=== PATIENT | female | born 1965 | race Caucasian/White ===

== ENCOUNTER → 2016-03-13 | Outpatient (REF) | payer OTHER ==
[2016-03-13 18:31] LABS: MEAN CORPUSCULAR HEMOGLOBIN 30.1 pg (27.0-33.0); MEAN CORPUSCULAR HGB CONC 33.3 g/dl (32.0-36.5); MEAN CORPUSCULAR VOLUME 90.3 fl (80.0-96.0); RED CELL DISTRIBUTION WIDTH 12.8 % (11.5-14.5); WHITE BLOOD COUNT 5.4 K/mm3 (4.0-10.0)
[2016-03-13 21:20] LABS: EOSINOPHILS 1 % (0-5)
== END ==
LOC: M LAB REF 16:16
PROVIDERS: ATTEND Internal Medicine
DX: L50.1 Idiopathic urticaria (principal)

== ENCOUNTER → 2016-08-15 | Outpatient (REF) | payer OTHER | LOC: M LAB REF 16:50 | PROVIDERS: ATTEND Internal Medicine | DX: D64.9 Anemia, unspecified (principal); E03.9 Hypothyroidism, unspecified; Q82.2 Congenital cutaneous mastocytosis ==

== ENCOUNTER → 2016-11-16 | Outpatient (REF) | payer OTHER | LOC: M LAB REF 17:23 | PROVIDERS: ATTEND Internal Medicine | DX: E03.9 Hypothyroidism, unspecified (principal) ==

== ENCOUNTER → 2016-12-05 | Outpatient (CLI) | payer OTHER ==
[2016-12-09 00:08] LABS: %CD8-/CD57+LYMPHS 4.2 % (2.0-17.0); B. HENSELAE IgG (CAT SCRATCH) Negative titer (Neg:<1:320); B. HENSELAE IgM (CAT SCRATCH) Negative titer (Neg:<1:100); B. QUINTANA IgG (CAT SCRATCH) Negative titer (Neg:<1:320); B. QUINTANA IgM (CAT SCRATCH) Negative titer (Neg:<1:100); BABESIOSIS LEVEL IGG <1:10 (Neg:<1:10); BABESIOSIS LEVEL IGM <1:10 (Neg:<1:10); C6 BORRELIA BURGDORFERI (LYME) <0.91 index (0.00-0.90); E CHAFFEENSIS IgG TITER Negative (Neg:<1:64); E CHAFFEENSIS IgM TITER Negative (Neg:<1:20); HUMAN GRANULCYTIC EHRLIC IgG Negative (Neg:<1:64); HUMAN GRANULCYTIC EHRLIC IgM Negative (Neg:<1:20); IMMATURE GRANULOCYTES 0 % (Not Estab.); Lyme Disease IgG/IgM Antibodie <0.91 ISR (0.00-0.90); Lyme Disease IgM Ab Quantitati <0.80 index (0.00-0.79); PLATELETS 295 x10E3/uL (150-379); WBC 4.5 x10E3/uL (3.4-10.8)
== END ==
LOC: M LAB 11:09
PROVIDERS: ATTEND Family Medicine
DX: M41.20 Other idiopathic scoliosis, site unspecified (principal)

== ENCOUNTER → 2016-12-07 | Outpatient (CLI) | payer OTHER | LOC: M LAB 16:17 | PROVIDERS: ATTEND Family Medicine | DX: M41.20 Other idiopathic scoliosis, site unspecified (principal) ==

== ENCOUNTER → 2017-03-06 | Outpatient (REF) | payer OTHER ==
[2017-03-06 19:47] LABS: BASO % 0.5 % (0.0-1.0); EOS # 0.1 10^3/uL (0.0-0.50); EOS % 1.7 % (0.0-3.0); HEMATOCRIT 39.5 % (36.0-47.0); HEMOGLOBIN 12.8 g/dl (12.0-16.0); IMMATURE GRANULOCYTE % 0.2 % (0-0); LYMPH # 2.3 10^3/uL (1.5-4.5); LYMPH % 39.3 % (24.0-44.0); MEAN CORPUSCULAR HEMOGLOBIN 29.6 pg (27.0-33.0); MEAN CORPUSCULAR HGB CONC 32.4 g/dl (32.0-36.5); MEAN CORPUSCULAR VOLUME 91.4 fl (80.0-96.0); MONO # 0.7 10^3/uL (0.0-0.8); MONO % 12.1 % (0.0-5.0); NEUTROPHILS # 2.6 10^3/uL (1.8-7.7); NEUTROPHILS % 46.2 % (36.0-66.0); PLATELET COUNT, AUTOMATED 302 10^3/uL (150-450); RED BLOOD COUNT 4.32 10^6/uL (4.00-5.40); RED CELL DISTRIBUTION WIDTH 13.2 % (11.5-14.5); WHITE BLOOD COUNT 5.7 10^3/uL (4.0-10.0)
== END ==
LOC: M LAB REF 19:14
DX: D47.01 Cutaneous mastocytosis (principal)

== ENCOUNTER → 2017-03-09 | Outpatient (CLI) | payer OTHER | LOC: M WUC 16:54 | DX: M25.511 Pain in right shoulder (principal) ==

== ENCOUNTER → 2017-08-02 | Outpatient (REF) | payer OTHER ==
[2017-08-03 09:38] LABS: VITAMIN B12 LEVEL 1445 PG/ML (247-911)
[2017-08-03 11:38] LABS: FREE T3 3.4 PG/ML (2.2-4.0)
[2017-08-06 08:06] LABS: TRYPTASE 11.4 ug/L (2.2-13.2)
== END ==
LOC: M LAB REF 16:47
DX: K21.9 Gastro-esophageal reflux disease without esophagitis (principal); D47.01 Cutaneous mastocytosis

== ENCOUNTER → 2017-11-02 | Outpatient (REF) | payer OTHER ==
[2017-11-02 21:08] LABS: FREE T3 3.9 PG/ML (2.2-4.0)
== END ==
LOC: M LAB REF 17:35
DX: E03.9 Hypothyroidism, unspecified (principal)

== ENCOUNTER → 2018-02-05 | Outpatient (REF) | payer OTHER ==
[2018-02-05 13:09] LABS: FREE T3 2.1 PG/ML (2.2-4.0)
== END ==
LOC: M LAB REF 12:36
DX: E03.9 Hypothyroidism, unspecified (principal)

== ENCOUNTER → 2019-07-28 | Outpatient (REF) | payer OTHER ==
[2019-07-28 17:22] LABS: BASO # 0.1 10^3/uL (0.0-0.2); BASO % 0.9 % (0.0-1.0); EOS # 0.2 10^3/uL (0.0-0.5); EOS % 2.7 % (0.0-3.0); HEMATOCRIT 40.5 % (36.0-47.0); HEMOGLOBIN 12.9 g/dl (12.0-15.5); LYMPH # 2.6 10^3/uL (1.5-5.0); LYMPH % 40.2 % (24.0-44.0); MEAN CORPUSCULAR HEMOGLOBIN 29.9 pg (27.0-33.0); MEAN CORPUSCULAR HGB CONC 31.9 g/dl (32.0-36.5); MONO # 0.6 10^3/uL (0.0-0.8); MONO % 8.6 % (0.0-5.0); NEUTROPHILS % 47.4 % (36.0-66.0); PLATELET COUNT, AUTOMATED 354 10^3/uL (150-450); RED BLOOD COUNT 4.31 10^6/uL (4.00-5.40); WHITE BLOOD COUNT 6.4 10^3/uL (4.0-10.0)
== END ==
LOC: M LAB REF 16:07
PROVIDERS: ATTEND Internal Medicine
DX: Q82.2 Congenital cutaneous mastocytosis (principal); D47.01 Cutaneous mastocytosis; E03.9 Hypothyroidism, unspecified

== ENCOUNTER → 2019-10-09 | Outpatient (CLI) | payer OTHER ==
--- NOTE | 2019-10-27 17:40 | REPMRS ---
Patient History The patient states she had a clinical breast exam in 07/2019. Patient is postmenopausal and is nulliparous. Family history of pancreatic cancer at age 50 or over in maternal aunt, pancreatic cancer at age 50 or over in maternal aunt, colorectal cancer at age 50 or over in maternal grandfather, ovarian cancer at age 69 in mother. Taking estrogen for 10 years. Taking progesterone for 10 years. Digital Woman Screen Mammo: October 09, 2019 - Exam #: [id number] Bilateral CC and MLO view(s) were taken. Technologist: Ainsley Booker, Technologist Prior study comparison: 2018, bilateral digital woman screen mammo, performed at [facility]. August 02, 2016, bilateral digital mammo screening bilat, performed at Dr[facility] Alfonso Graves [facility]. July 28, 2015, bilateral digital mammo screening bilat, performed at Dr[facility] Alfonso [facility]. FINDINGS: The breast tissue is heterogeneously dense. This may lower the sensitivity of mammography. There is a moderate amount of heterogeneously dense fibroglandular tissue which is fairly symmetric. There is no interval development of dominant mass, architectural distortion, or grouped microcalcification typical of malignancy. There has been no change in the appearance of the mammogram from the prior studies. 3-D tomosynthesis shows no additional findings. Assessment: BI-RADS/ACR category 1 mammogram. Negative Mammogram. Recommendation Routine screening mammogram of both breasts in 1 year (for women over age 40). This patient's Lifetime Breast Cancer RIsk is estimated at 12.6 %. This mammogram was interpreted with the aid of an FDA-approved computer-aided dectection system. Electronically Signed By: Tu Mckenna MD 10/27/19 0735
--- NOTE | 2019-11-24 09:25 | REP ---
BILATERAL WHOLE BREAST ULTRASOUND HISTORY: Dense breasts. CORRELATION: Mammogram 10/09/2019. The mammogram showed no abnormalities. This interpretation is delayed due to catastrophic computer system failure at [facility] due to a malware attack. The images are made available to me for dictation and interpretation 10/28/2019. TECHNIQUE: Whole breast ultrasound performed bilaterally. FINDINGS: There are multiple subcentimeter cystic structures seen diffusely bilaterally. Many contain thin septations and mild low level echoes with no suspicious nodule identified. Specifically in the right breast at 12 o'clock, there is a 5-mm cyst; at 5 o'clock, there is a 3-mm cyst; at 9 o'clock, there is a 3-mm cyst; and at 10 o'clock, there is a 7 mm cyst. In the right axilla, a normal appearing lymph node measures 1.2 x 0.7 x 0.4 cm. In the left breast at 12 o'clock, there is a 4 mm cyst; at 3 o'clock, a 7 mm cyst; at 6 o'clock, a 5 mm cyst; at 7 o'clock, a 5 mm cyst; and at 8 o'clock, a 1 cm cyst, as well as a 5 mm cyst. There is also a normal appearing nonenlarged lymph node in the left axilla 1.0 x 0.6 x 0.4 cm. IMPRESSION: ACR 2 benign bilateral whole breast ultrasound. Multiple subcentimeter cystic structures scattered throughout both breasts appear benign. No suspicious nodule seen. MTDD
== END ==
LOC: M WHC 06:23
PROVIDERS: ATTEND Obstetrics & Gynecology Gynecology
DX: R92.2 Inconclusive mammogram (principal); Z78.0 Asymptomatic menopausal state; Z80.41 Family history of malignant neoplasm of ovary; Z79.899 Other long term (current) drug therapy

== ENCOUNTER → 2019-11-11 | Outpatient (REF) | payer OTHER ==
[2019-11-11 17:08] LABS: HEMATOCRIT 45.2 % (36.0-47.0); HEMOGLOBIN 14.2 g/dl (12.0-15.5); MEAN CORPUSCULAR HEMOGLOBIN 29.2 pg (27.0-33.0); MEAN CORPUSCULAR HGB CONC 31.4 g/dl (32.0-36.5); PLATELET COUNT, AUTOMATED 366 10^3/uL (150-450); RED BLOOD COUNT 4.86 10^6/uL (4.00-5.40); WHITE BLOOD COUNT 5.9 10^3/uL (4.0-10.0)
[2019-11-11 18:47] LABS: ATYPICAL LYMPH 3 % (0-5); BASOPHILS 3 % (0-1); LYMPHOCYTES 57 % (16-44); MONOCYTES 4 % (0-5); NEUTROPHILS 33 % (28-66)
[2019-11-11 18:49] LABS: PLATELET ESTIMATE NORMAL (NORMAL)
== END ==
LOC: M LAB REF 16:17
PROVIDERS: ATTEND Internal Medicine
DX: E03.9 Hypothyroidism, unspecified (principal); Q82.2 Congenital cutaneous mastocytosis; D72.9 Disorder of white blood cells, unspecified

== ENCOUNTER → 2019-11-18 | Outpatient (REF) | payer OTHER | LOC: M LAB REF 11:34 | PROVIDERS: ATTEND Internal Medicine | DX: D72.9 Disorder of white blood cells, unspecified (principal) ==

== ENCOUNTER → 2019-12-01 | Outpatient (CLI) | payer OTHER ==
[2019-12-01 16:45] LABS: C REACTIVE PROTEIN QUANTITATIV < 0.30 MG/DL (0.00-0.30); RHEUMATOID FACTOR QUANT < 10.0 IU/ML (<15.0)
[2019-12-04 08:11] LABS: CYTOMEGALOVIRUS IgG ANTIBODY <0.60 U/mL (0.00-0.59); CYTOMEGALOVIRUS IgM ANTIBODY <30.0 AU/mL (0.0-29.9); HERPES HUMAN VIRUS #6 IgG HVG 1.98 index (.)
== END ==
LOC: M LAB 15:15
PROVIDERS: ATTEND Family Medicine
DX: E03.9 Hypothyroidism, unspecified (principal); R53.83 Other fatigue; N95.8 Other specified menopausal and perimenopausal disorders; A04.8 Other specified bacterial intestinal infections

== ENCOUNTER → 2019-12-10 | Outpatient (CLI) | payer OTHER | LOC: M LAB 13:25 | PROVIDERS: ATTEND Family Medicine | DX: M41.50 Other secondary scoliosis, site unspecified (principal) ==

== ENCOUNTER → 2020-03-02 | Outpatient (CLI) | payer OTHER | LOC: M LAB 12:13 | PROVIDERS: ATTEND Family Medicine | DX: M41.20 Other idiopathic scoliosis, site unspecified (principal); E03.9 Hypothyroidism, unspecified; R53.82 Chronic fatigue, unspecified; J30.9 Allergic rhinitis, unspecified; N95.8 Other specified menopausal and perimenopausal disorders; K64.9 Unspecified hemorrhoids; A04.8 Other specified bacterial intestinal infections; B37.9 Candidiasis, unspecified ==

== ENCOUNTER → 2020-03-09 | Outpatient (REF) | payer OTHER | LOC: M LAB REF 16:31 | PROVIDERS: ATTEND Internal Medicine | DX: E03.9 Hypothyroidism, unspecified (principal) ==

== ENCOUNTER 2020-03-23 10:30 | Outpatient (RCR) | payer OTHER | END 2020-03-28 | LOC: M OT 10:30 | PROVIDERS: ATTEND Physician Assistant | DX: M19.041 Primary osteoarthritis, right hand (principal); M19.042 Primary osteoarthritis, left hand ==

== ENCOUNTER → 2020-04-07 | Outpatient (CLI) | payer OTHER | LOC: M LAB 13:21 | PROVIDERS: ATTEND Family Medicine | DX: M41.20 Other idiopathic scoliosis, site unspecified (principal); E03.9 Hypothyroidism, unspecified; R53.82 Chronic fatigue, unspecified; J30.9 Allergic rhinitis, unspecified; N95.8 Other specified menopausal and perimenopausal disorders; K64.9 Unspecified hemorrhoids; A04.8 Other specified bacterial intestinal infections; B37.9 Candidiasis, unspecified ==

== ENCOUNTER 2020-04-20 10:30 | Outpatient (RCR) | payer OTHER | END 2020-04-25 | LOC: M OT 10:30 | PROVIDERS: ATTEND Physician Assistant | DX: M19.041 Primary osteoarthritis, right hand (principal); M19.042 Primary osteoarthritis, left hand ==

== ENCOUNTER 2020-05-25 10:25 | Outpatient (RCR) | payer OTHER | END 2020-05-26 | LOC: M OT 10:25 | PROVIDERS: ATTEND Physician Assistant | DX: M19.041 Primary osteoarthritis, right hand (principal); M19.042 Primary osteoarthritis, left hand ==

== ENCOUNTER 2020-06-08 10:30 | Outpatient (RCR) | payer OTHER | END 2020-06-25 | LOC: M OT 10:30 | PROVIDERS: ATTEND Physician Assistant | DX: M19.041 Primary osteoarthritis, right hand (principal); M19.042 Primary osteoarthritis, left hand ==

== ENCOUNTER → 2020-06-18 | Outpatient (REF) | payer OTHER | LOC: M LAB REF 16:27 | PROVIDERS: ATTEND Internal Medicine | DX: E03.9 Hypothyroidism, unspecified (principal) ==

== ENCOUNTER 2020-06-29 10:36 | Outpatient (RCR) | payer OTHER | END 2020-07-26 | LOC: M OT 10:36 | PROVIDERS: ATTEND Physician Assistant | DX: M19.041 Primary osteoarthritis, right hand (principal); M19.042 Primary osteoarthritis, left hand ==

== ENCOUNTER → 2020-10-05 | Outpatient (REF) | payer OTHER ==
[2020-10-05 19:13] LABS: ATYPICAL LYMPH 3 % (0-5); BASOPHILS 1 % (0-1); EOSINOPHILS 2 % (0-3); LYMPHOCYTES 40 % (16-44); MONOCYTES 8 % (0-5); NEUTROPHILS 46 % (28-66); PLATELET ESTIMATE NORMAL (NORMAL)
== END ==
LOC: M LAB REF 16:51
PROVIDERS: ATTEND Internal Medicine
DX: D47.01 Cutaneous mastocytosis (principal)

== ENCOUNTER → 2021-01-03 | Outpatient (REF) | payer OTHER ==
[2021-01-03 17:14] LABS: HEMATOCRIT 39.6 % (36.0-47.0); HEMOGLOBIN 12.7 g/dl (12.0-15.5); MEAN CORPUSCULAR HEMOGLOBIN 28.8 pg (27.0-33.0); MEAN CORPUSCULAR HGB CONC 32.1 g/dl (32.0-36.5); MEAN CORPUSCULAR VOLUME 89.8 fl (80.0-96.0); PLATELET COUNT, AUTOMATED 381 10^3/uL (150-450); RED BLOOD COUNT 4.41 10^6/uL (4.00-5.40); WHITE BLOOD COUNT 7.8 10^3/uL (4.0-10.0)
[2021-01-03 19:01] LABS: ATYPICAL LYMPH 3 % (0-5); BASOPHILS 3 % (0-1); EOSINOPHILS 1 % (0-3); LYMPHOCYTES 56 % (16-44); MONOCYTES 4 % (0-5); NEUTROPHILS 33 % (28-66)
[2021-01-03 19:02] LABS: PLATELET ESTIMATE NORMAL (NORMAL)
== END ==
LOC: M LAB REF 16:18
PROVIDERS: ATTEND Internal Medicine
DX: E03.9 Hypothyroidism, unspecified (principal); D47.01 Cutaneous mastocytosis; D72.89 Other specified disorders of white blood cells

== ENCOUNTER → 2021-03-09 | Outpatient (CLI) | payer OTHER | LOC: M RAD 09:16 | PROVIDERS: ATTEND Internal Medicine Hematology & Oncology | DX: Q82.2 Congenital cutaneous mastocytosis (principal) ==

== ENCOUNTER → 2021-04-07 | Outpatient (REF) | payer OTHER | LOC: M LAB REF 16:10 | PROVIDERS: ATTEND Internal Medicine | DX: E03.9 Hypothyroidism, unspecified (principal) ==

== ENCOUNTER → 2021-05-25 | Outpatient (REF) | payer OTHER | LOC: M LAB REF 16:18 | PROVIDERS: ATTEND Internal Medicine | DX: E03.9 Hypothyroidism, unspecified (principal) ==

== ENCOUNTER → 2021-07-06 | Outpatient (REF) | payer OTHER | LOC: M LAB REF 16:28 | PROVIDERS: ATTEND Internal Medicine | DX: E03.9 Hypothyroidism, unspecified (principal) ==

== ENCOUNTER → 2021-07-21 | Outpatient (CLI) | payer OTHER | LOC: M RAD 14:23 | PROVIDERS: ATTEND Internal Medicine | DX: M41.9 Scoliosis, unspecified (principal); M51.37 Other intervertebral disc degeneration, lumbosacral region ==

== ENCOUNTER → 2021-10-19 | Outpatient (REF) | payer OTHER | LOC: M LAB REF 12:07 | PROVIDERS: ATTEND Internal Medicine | DX: E03.9 Hypothyroidism, unspecified (principal) ==

== ENCOUNTER → 2022-01-16 | Outpatient (CLI) | payer OTHER | LOC: M RAD 15:48 | PROVIDERS: ATTEND Internal Medicine | DX: M19.072 Primary osteoarthritis, left ankle and foot (principal) ==

== ENCOUNTER → 2022-02-28 | Outpatient (CLI) | payer OTHER | LOC: M WUC 13:05 | PROVIDERS: ATTEND Physician Assistant | DX: S30.0XXA Contusion of lower back and pelvis, initial encounter (principal); M47.896 Other spondylosis, lumbar region; X58.XXXA Exposure to other specified factors, initial encounter; Y92.9 Unspecified place or not applicable ==

== ENCOUNTER → 2022-04-13 | Outpatient (CLI) | payer OTHER | LOC: M RAD 16:19 | DX: R51.9 Headache, unspecified (principal); J31.0 Chronic rhinitis; R09.81 Nasal congestion ==

== ENCOUNTER → 2022-07-19 | Outpatient (REF) | payer OTHER | LOC: M LAB REF 16:31 | PROVIDERS: ATTEND Internal Medicine | DX: E03.9 Hypothyroidism, unspecified (principal) ==

== ENCOUNTER → 2022-10-24 | Outpatient (REF) | payer OTHER | LOC: M LAB REF 16:49 | PROVIDERS: ATTEND Internal Medicine | DX: E03.9 Hypothyroidism, unspecified (principal) ==

== ENCOUNTER → 2023-01-31 | Outpatient (REF) | payer OTHER | LOC: M LAB REF 16:42 | PROVIDERS: ATTEND Internal Medicine | DX: E03.9 Hypothyroidism, unspecified (principal) ==

== ENCOUNTER → 2023-05-08 | Outpatient (REF) | payer OTHER | LOC: M LAB REF 13:14 | PROVIDERS: ATTEND Internal Medicine | DX: E03.9 Hypothyroidism, unspecified (principal) ==

== ENCOUNTER → 2023-05-11 | Outpatient (REF) | payer OTHER ==
[2023-05-14 15:07] LABS: ANTINUCLEAR ANTIBODIES DIRECT Negative (Negative)
== END ==
LOC: M LAB REF 16:16
PROVIDERS: ATTEND Internal Medicine
DX: M79.10 Myalgia, unspecified site (principal)

== ENCOUNTER → 2023-10-11 | Outpatient (CLI) | payer OTHER ==
[2023-10-11 13:55] LABS: BASO # 0.1 10^3/uL (0.0-0.2); BASO % 0.8 % (0.0-1.0); EOS # 0.1 10^3/uL (0.0-0.5); EOS % 1.8 % (0.0-3.0); HEMATOCRIT 39.9 % (36.0-47.0); HEMOGLOBIN 12.7 g/dl (12.0-15.5); LYMPH # 2.4 10^3/uL (1.5-5.0); LYMPH % 38.5 % (24.0-44.0); MEAN CORPUSCULAR HEMOGLOBIN 28.3 pg (27.0-33.0); MEAN CORPUSCULAR HGB CONC 31.8 g/dl (32.0-36.5); MEAN CORPUSCULAR VOLUME 88.9 fl (80.0-96.0); MONO # 0.4 10^3/uL (0.0-0.8); NEUTROPHILS # 3.2 10^3/uL (1.5-8.5); NEUTROPHILS % 51.6 % (36.0-66.0); PLATELET COUNT, AUTOMATED 369 10^3/uL (150-450); RED BLOOD COUNT 4.49 10^6/uL (4.00-5.40); WHITE BLOOD COUNT 6.3 10^3/uL (4.0-10.0)
[2023-10-11 14:03] LABS: ERYTHROCYTE SEDIMENTATION RATE 11 mm/hr (0-30)
[2023-10-11 14:19] LABS: HEMOGLOBIN A1c 5.5 % (4.0-6.0)
[2023-10-11 14:31] LABS: C REACTIVE PROTEIN QUANTITATIV < 0.40 MG/DL (<1.0)
[2023-10-11 14:32] LABS: AMYLASE 115 U/L (30-118)
[2023-10-11 14:33] LABS: ALBUMIN 3.9 G/DL (3.2-5.2); ALKALINE PHOSPHATASE 92 U/L (46-116); ALT/SGPT 31 U/L (7.0-40); AST/SGOT 19 U/L (<34); BILIRUBIN,TOTAL 0.5 MG/DL (0.3-1.2); BLOOD UREA NITROGEN 17 MG/DL (9-23); CALCIUM LEVEL 9.6 MG/DL (8.5-10.1); CARBON DIOXIDE LEVEL 29 MMOL/L (20-31); CHLORIDE LEVEL 106 MMOL/L (98-107); CHOLESTEROL LEVEL 178 MG/DL (<200); CHOLESTEROL RISK RATIO 2.54 (<5); GLOMERULAR FILTRATION RATE > 60.0 (>51); GLUCOSE, FASTING 79 MG/DL (60-100); HDL CHOLESTEROL 69.9 MG/DL (>40); IRON (FE) 140 UG/DL (50-170); LDL CHOLESTEROL 97.9 MG/DL (<100); NON-HDL-C 108.1 MG/DL; PERCENT SATURATION 41.9 % (13.2-45.0); SODIUM LEVEL 141 MMOL/L (136-145); TOTAL IRON BINDING CAPACITY 334 UG/DL (250-425); TOTAL PROTEIN 7.5 G/DL (5.7-8.2); TRIGLYCERIDES LEVEL 51 MG/DL (<150)
[2023-10-11 14:34] LABS: ESTRADIOL < 19.0 PG/ML; FERRITIN 41.7 NG/ML (7.3-270.7)
[2023-10-11 14:35] LABS: FREE T4 1.01 NG/DL (0.89-1.76); PROGESTERONE < 0.21 NG/ML
[2023-10-11 14:38] LABS: IMMUNOGLOBULIN A 315.8 MG/DL (40-350); IMMUNOGLOBULIN G 1239 MG/DL (650-1600)
[2023-10-11 14:41] LABS: FREE T3 3.1 PG/ML (2.3-4.2)
[2023-10-12 08:03] LABS: H. PYLORI BREATH TEST NOT DETECTED (NOT DETECTED)
[2023-10-12 14:01] LABS: CYTOMEGALOVIRUS IgM ANTIBODY < 30.00 AU/mL (<30.00)
[2023-10-15 12:08] LABS: THRYOGLOBULIN ANTIBODIES (ATA) 1 IU/mL (< or = 1); THYROGLOBULIN QUANTITATIVE 0.4 ng/mL (2.8-40.9)
[2023-10-15 14:02] LABS: EBV VIRAL CAPSID AG IGM < 36.00 U/mL (<36.00)
[2023-10-16 18:32] LABS: MYCOPLASMA PNEUMONIAE IGG 1.82 (<=0.90)
[2023-10-16 22:33] LABS: TESTOSTERONE FREE (DIRECT) 0.4 pg/mL (0.1-6.4); TESTOSTERONE TOTAL FOR T&D 6 ng/dL (2-45)
[2023-10-17 16:13] LABS: CYTOMEGALOVIRUS IgG ANTIBODY <0.60 U/mL (0.00-0.59); HERPES HUMAN VIRUS #6 BY PCR Negative (Negative)
[2023-10-18 00:51] LABS: CHLAMYDIA PNEUMONIAE IgG <1:64 titer (<1:64); CHLAMYDIA PNEUMONIAE IgM <1:10 titer (<1:10)
== END ==
LOC: M LAB 10:26
PROVIDERS: ATTEND Family Medicine
DX: M41.20 Other idiopathic scoliosis, site unspecified (principal); E03.9 Hypothyroidism, unspecified; J30.9 Allergic rhinitis, unspecified; N95.8 Other specified menopausal and perimenopausal disorders; K64.9 Unspecified hemorrhoids; A04.8 Other specified bacterial intestinal infections; B37.9 Candidiasis, unspecified; R53.82 Chronic fatigue, unspecified

== ENCOUNTER → 2023-11-05 | Outpatient (CLI) | payer OTHER | LOC: M PAIN 13:00 | PROVIDERS: ATTEND Nurse Practitioner Family | DX: M51.16 Intervertebral disc disorders with radiculopathy, lumbar region (principal); G89.29 Other chronic pain; M81.0 Age-related osteoporosis without current pathological fracture; E07.9 Disorder of thyroid, unspecified; Z79.890 Hormone replacement therapy; Z79.899 Other long term (current) drug therapy; Z88.1 Allergy status to other antibiotic agents; Z88.8 Allergy status to other drugs, medicaments and biological substances; Z91.048 Other nonmedicinal substance allergy status ==

== ENCOUNTER → 2024-02-01 | Outpatient (CLI) | payer OTHER ==
[~2024-02-01] MED LIST: ISOVUE-M 300 61% 15ML VIAL As Ordered ONE; LIDOCAINE 1% SDV 30ML VIAL As Ordered ONE; dexAMETHasone 10MG/1ML VIAL PRES.FREE As Ordered ONE; diazePAM 5MG TABLET As Ordered ONE
== END ==
LOC: M PAIN 08:15
PROVIDERS: ATTEND Anesthesiology
DX: M51.16 Intervertebral disc disorders with radiculopathy, lumbar region (principal); G89.29 Other chronic pain; M81.0 Age-related osteoporosis without current pathological fracture; E07.9 Disorder of thyroid, unspecified; K58.9 Irritable bowel syndrome, unspecified; Z79.890 Hormone replacement therapy; Z79.899 Other long term (current) drug therapy; Z88.1 Allergy status to other antibiotic agents; Z88.8 Allergy status to other drugs, medicaments and biological substances; Z91.02 Food additives allergy status; J30.1 Allergic rhinitis due to pollen
CPT/HCPCS: 62323; J1100; Q9967

== ENCOUNTER → 2024-03-07 | Outpatient (CLI) | payer OTHER | LOC: M PAIN 10:45 | PROVIDERS: ATTEND Nurse Practitioner Family | DX: M46.1 Sacroiliitis, not elsewhere classified (principal); G89.29 Other chronic pain; M54.50 Low back pain, unspecified; M51.16 Intervertebral disc disorders with radiculopathy, lumbar region; M81.0 Age-related osteoporosis without current pathological fracture; E07.9 Disorder of thyroid, unspecified; K58.9 Irritable bowel syndrome, unspecified; Z79.890 Hormone replacement therapy; Z79.899 Other long term (current) drug therapy; Z88.1 Allergy status to other antibiotic agents; Z88.8 Allergy status to other drugs, medicaments and biological substances; Z91.02 Food additives allergy status ==

== ENCOUNTER → 2024-03-20 | Outpatient (REF) | payer OTHER | LOC: M LAB REF 17:07 | PROVIDERS: ATTEND Internal Medicine | DX: E03.9 Hypothyroidism, unspecified (principal) ==

== ENCOUNTER → 2024-03-25 | Outpatient (CLI) | payer OTHER | LOC: M PLAIMG 14:05 | PROVIDERS: ATTEND Nurse Practitioner Family | DX: M46.1 Sacroiliitis, not elsewhere classified (principal); M41.86 Other forms of scoliosis, lumbar region ==

== ENCOUNTER → 2024-04-03 | Outpatient (CLI) | payer OTHER | LOC: M PAIN 16:00 | PROVIDERS: ATTEND Nurse Practitioner Family | DX: M46.1 Sacroiliitis, not elsewhere classified (principal); G89.29 Other chronic pain; M51.16 Intervertebral disc disorders with radiculopathy, lumbar region; M81.0 Age-related osteoporosis without current pathological fracture; E07.9 Disorder of thyroid, unspecified; Z79.890 Hormone replacement therapy; Z79.899 Other long term (current) drug therapy; Z88.1 Allergy status to other antibiotic agents; Z88.8 Allergy status to other drugs, medicaments and biological substances ==

== ENCOUNTER → 2024-05-19 | Outpatient (CLI) | payer OTHER | LOC: M RAD 09:18 | PROVIDERS: ATTEND Internal Medicine | DX: R10.11 Right upper quadrant pain (principal) ==

== ENCOUNTER → 2024-06-27 | Outpatient (REF) | payer OTHER | LOC: M LAB REF 12:38 | PROVIDERS: ATTEND Internal Medicine | DX: E03.9 Hypothyroidism, unspecified (principal) ==

== ENCOUNTER → 2024-10-14 | Outpatient (REF) | payer OTHER | LOC: M LAB REF 17:42 | PROVIDERS: ATTEND Internal Medicine | DX: E03.9 Hypothyroidism, unspecified (principal) ==

== ENCOUNTER → 2024-10-28 | Outpatient (CLI) | payer OTHER | LOC: M WUC 15:25 | PROVIDERS: ATTEND Physician Assistant | DX: S23.41XA Sprain of ribs, initial encounter (principal); X58.XXXA Exposure to other specified factors, initial encounter; Y92.9 Unspecified place or not applicable ==

== ENCOUNTER → 2024-11-28 | Outpatient (CLI) | payer OTHER | LOC: M PLAIMG 07:37 | PROVIDERS: ATTEND Internal Medicine | DX: R07.89 Other chest pain (principal); R93.89 Abnormal findings on diagnostic imaging of other specified body structures; J98.11 Atelectasis; J84.10 Pulmonary fibrosis, unspecified ==

== ENCOUNTER → 2025-01-19 | Outpatient (REF) | payer OTHER | LOC: M LAB REF 11:44 | PROVIDERS: ATTEND Internal Medicine | DX: E03.9 Hypothyroidism, unspecified (principal); D47.01 Cutaneous mastocytosis ==